=== PATIENT | female | born 1930 | race African-American/Black ===

== ENCOUNTER 2020-02-06 09:57 | Emergency (ER) | payer BC, MEDICAID ==
[~2020-02-06] VITALS: Ht 165.1 cm; Wt 64.0 kg
[~2020-02-06 09:57] MED LIST: ASPI-1497; NIFE60TA78; OXYB5TAB17; SIMV-43
[2020-02-06 11:53] LABS: BASOPHILS % 0.7 % (0.0-2.0); EOSINOPHILS % 2.7 % (0.0-5.0); HEMATOCRIT. 36.4 % (36.0-48.0); HEMOGLOBIN. 12.4 g/dL (12.0-16.0); LYMPHOCYTES % 14.1 % (20.0-50.0); MEAN CORPUSCULAR VOLUME 82.3 fL (81.0-99.0); MEAN PLATELET VOLUME 10.1 fl (7.4-10.4); MONOCYTES % 5.3 % (2.0-8.0); NEUTROPHILS % 77.2 % (40.0-76.0); PLATELET 144 x1000/uL (130-400); RED BLOOD CELL COUNT 4.42 mill/uL (4.2-5.4); RED CELL DISTRIBUTION WIDTH 17.6 % (11.6-14.6)
[2020-02-06 11:58] LABS: CHLORIDE 112 mEq/L (98-107)
[2020-02-06 12:02] LABS: INR 1.1; PROTHROMBIN TIME 12.2 sec (9.6-11.0)
[2020-02-06 19:56] VITALS: BP 154/91
== END 2020-02-06 20:00 | disposition short-term general hospital (02) ==
LOC: ER 10:13 → EDBEDREQ 11:30 → CANBEDREQ 14:28 → ER 20:00
DX: R00.1 Bradycardia, unspecified (principal); I10 Essential (primary) hypertension; F03.90 Unspecified dementia, unspecified severity, without behavioral disturbance, psychotic disturbance, mood disturbance, and anxiety; Z88.2 Allergy status to sulfonamides; Z88.1 Allergy status to other antibiotic agents; Z79.82 Long term (current) use of aspirin; Z79.899 Other long term (current) drug therapy
CPT/HCPCS: 36415; 71045; 80053; 83605; 83880; 84443; 84484; 85025; 93005; 99285